=== PATIENT | male | born 2000 | race Caucasian/White ===

== ENCOUNTER 2021-02-13 10:34 | Day surgery (SDC) | payer OTHER, SELFPAY ==
[~2021-02-13] VITALS: Ht 162.6 cm; Wt 44.5 kg
[2021-02-13] MEDS ORDERED: fentaNYL citrate 0.05 MG/ML VIAL ONE (14:24)
[2021-02-13] MEDS ORDERED: MIDAZOLAM 5 MG/5 ML VIAL ONE (14:24)
[2021-02-13] MEDS ORDERED: MIDAZOLAM 2 MG/2 ML VIAL IVP ONE (14:50)
== END 2021-02-13 12:00 | disposition home or self-care (01) ==
LOC: MDS 10:34 → MMU 11:34 → MDS 12:00
PROVIDERS: ATTEND Internal Medicine Gastroenterology
DX: R10.13 Epigastric pain (principal); Z20.822 Contact with and (suspected) exposure to COVID-19; Z79.899 Other long term (current) drug therapy
CPT/HCPCS: 36415; 43239; 86677; J2250; U0003; J3010